=== PATIENT | male | born 1995 | race Caucasian/White ===

== ENCOUNTER 2017-12-18 12:43 | Emergency (ER) | payer MEDICAID, OTHER ==
[2017-12-18 13:20] LABS: HEMATOCRIT 46.2 % (42.0-52.0); HEMOGLOBIN 15.6 g/dl (14.0-18.0); MEAN CORPUSCULAR HEMOGLOBIN 28.9 pg (27.0-33.0); MEAN CORPUSCULAR HGB CONC 33.8 g/dl (32.0-36.5); MEAN CORPUSCULAR VOLUME 85.6 fl (80.0-96.0); PLATELET COUNT, AUTOMATED 277 10^3/uL (150-450); RED CELL DISTRIBUTION WIDTH 12.5 % (11.5-14.5); WHITE BLOOD COUNT 7.4 10^3/uL (4.0-10.0)
[2017-12-18 14:00] LABS: ALBUMIN 4.4 GM/DL (3.2-5.2); ALBUMIN/GLOBULIN RATIO 1.16 (1.00-1.93); ALKALINE PHOSPHATASE 53 U/L (45-117); ALT/SGPT 108 U/L (12-78); ANION GAP 6 MEQ/L (8-16); AST/SGOT 72 U/L (7-37); BILIRUBIN,DIRECT 0.1 MG/DL (0.0-0.2); BILIRUBIN,TOTAL 0.7 MG/DL (0.2-1.0); BLOOD UREA NITROGEN 12 MG/DL (7-18); CALCIUM LEVEL 9.8 MG/DL (8.5-10.1); CARBON DIOXIDE LEVEL 31 MEQ/L (21-32); CHLORIDE LEVEL 100 MEQ/L (98-107); CREATININE FOR GFR 0.77 MG/DL (0.70-1.30); ETHYL ALCOHOL (ETHANOL) < 0.003 % (0.000-0.010); GLOMERULAR FILTRATION RATE > 60.0 (>60); GLUCOSE, FASTING 89 MG/DL (70-100); POTASSIUM SERUM 4.3 MEQ/L (3.5-5.1); SALICYLATE LEVEL < 1.7 MG/DL (5.0-30.0); SODIUM LEVEL 137 MEQ/L (136-145); TOTAL PROTEIN 8.2 GM/DL (6.4-8.2)
[2017-12-18 14:04] LABS: ACETAMINOPHEN LEVEL < 2.0 UG/ML (10.0-30.0)
== END 2017-12-18 14:33 | disposition home or self-care (01) ==
LOC: M ED 12:43
DX: Z04.6 Encounter for general psychiatric examination, requested by authority (principal); F43.0 Acute stress reaction; F41.9 Anxiety disorder, unspecified
CPT/HCPCS: 80320; G0480

== ENCOUNTER → 2018-03-19 | Outpatient (REF) | payer OTHER ==
[2018-03-20 00:08] LABS: BLOOD UREA NITROGEN 10 MG/DL (7-18); GLUCOSE, FASTING 99 MG/DL (70-100)
[2018-03-20 00:09] LABS: ALBUMIN/GLOBULIN RATIO 1.11 (1.00-1.93); ALKALINE PHOSPHATASE 49 U/L (45-117); ALT/SGPT 107 U/L (12-78); ANION GAP 8 MEQ/L (8-16); AST/SGOT 59 U/L (7-37); BILIRUBIN,TOTAL 0.7 MG/DL (0.2-1.0); CALCIUM LEVEL 9.2 MG/DL (8.5-10.1); CARBON DIOXIDE LEVEL 28 MEQ/L (21-32); CHLORIDE LEVEL 102 MEQ/L (98-107); CREATININE FOR GFR 0.85 MG/DL (0.70-1.30); GLOMERULAR FILTRATION RATE > 60.0 (>60); POTASSIUM SERUM 4.4 MEQ/L (3.5-5.1); SODIUM LEVEL 138 MEQ/L (136-145); TOTAL PROTEIN 7.6 GM/DL (6.4-8.2)
[2018-03-20 03:42] LABS: BASO % 0.5 % (0.0-1.0); EOS # 0.3 10^3/uL (0.0-0.50); EOS % 2.9 % (0.0-3.0); HEMATOCRIT 47.1 % (42.0-52.0); HEMOGLOBIN 14.7 g/dl (13.5-17.5); IMMATURE GRANULOCYTE % 0.4 % (0-3.0); LYMPH # 3.3 10^3/uL (1.5-6.5); LYMPH % 38.5 % (24.0-44.0); MEAN CORPUSCULAR HEMOGLOBIN 28.4 pg (27.0-33.0); MEAN CORPUSCULAR HGB CONC 31.2 g/dl (32.0-36.5); MEAN CORPUSCULAR VOLUME 91.1 fl (80.0-96.0); MONO # 0.6 10^3/uL (0.0-0.8); MONO % 7.3 % (0.0-5.0); NEUTROPHILS # 4.3 10^3/uL (1.8-7.7); NEUTROPHILS % 50.4 % (36.0-66.0); PLATELET COUNT, AUTOMATED 290 10^3/uL (150-450); RED BLOOD COUNT 5.17 10^6/uL (4.30-6.10); RED CELL DISTRIBUTION WIDTH 13.4 % (11.5-14.5); WHITE BLOOD COUNT 8.5 10^3/uL (4.0-10.0)
== END ==
LOC: M SFHCPLAZ 09:51
DX: F41.9 Anxiety disorder, unspecified (principal); R74.8 Abnormal levels of other serum enzymes
CPT/HCPCS: 84443

== ENCOUNTER → 2018-04-17 | Outpatient (REF) | payer OTHER ==
[2018-04-17 16:43] LABS: FERRITIN 297 NG/ML (26-388)
[2018-04-18 09:54] LABS: HEPATITIS B SURFACE ANTIGEN NEGATIVE (NEGATIVE)
[2018-04-18 09:59] LABS: HEPATITIS B SURFACE ANTIBODY POSITIVE (POSITIVE)
[2018-04-18 10:19] LABS: HEPATITIS C VIRUS ABY INDEX 0.2 INDEX (<0.8)
[2018-04-18 10:20] LABS: HEPATITIS B CORE ANTIBODY IGM NEGATIVE (NEGATIVE)
[2018-04-20 00:10] LABS: ALPHA 1 ANTITRYPSIN 104 mg/dL (90-200)
[2018-04-20 00:10] LABS: ANTI-MITOCHONDRIAL ANTIBODY 3.3 Units (0.0-20.0); ANTINUCLEAR ANTIBODIES DIRECT Negative (Negative)
== END ==
LOC: M SFHCPLAZ 13:06
DX: R74.8 Abnormal levels of other serum enzymes (principal)

== ENCOUNTER → 2018-05-02 | Outpatient (CLI) | payer OTHER | LOC: M RAD 06:43 | DX: K76.0 Fatty (change of) liver, not elsewhere classified (principal); R74.8 Abnormal levels of other serum enzymes | CPT/HCPCS: 76705 ==

== ENCOUNTER → 2018-06-10 | Outpatient (CLI) | payer OTHER ==
[2018-06-10 14:55] LABS: CHOLESTEROL LEVEL 185 MG/DL (<200); CHOLESTEROL RISK RATIO 6.851 (<5); HDL CHOLESTEROL 27 MG/DL (>40); LDL CHOLESTEROL 94.8 MG/DL (<100); NON-HDL-C 158 MG/DL; TRIGLYCERIDES LEVEL 316 MG/DL (<150)
[2018-06-16 10:08] LABS: ALDOS/RENIN RATIO 12.4 (0.0-30.0); ALDOSTERONE 12.4 ng/dL (0.0-30.0); RENIN ACTIVITY 0.998 ng/mL/hr (0.167-5.380)
== END ==
LOC: M LAB 13:14
DX: K76.0 Fatty (change of) liver, not elsewhere classified (principal); I10 Essential (primary) hypertension
CPT/HCPCS: 84244

== ENCOUNTER → 2018-06-12 | Outpatient (CLI) | payer OTHER | LOC: M RAD 07:40 | DX: I10 Essential (primary) hypertension (principal) | CPT/HCPCS: 76775 ==

== ENCOUNTER → 2018-07-01 | Outpatient (REF) | payer OTHER ==
[2018-07-01 15:58] LABS: MALB URINE SIEMENS 5.8 MG/L
[2018-07-01 18:42] LABS: CREATININE, URINE 98.2 MG/DL; MAU/CREAT RATIO 5.9 MCG/MG (0.0-30.0)
== END ==
LOC: M SFHCADAM 14:25
DX: I10 Essential (primary) hypertension (principal)

== ENCOUNTER → 2019-03-03 | Outpatient (REF) | payer MEDICAID | LOC: M SFHCPLAZ 10:52 | DX: I10 Essential (primary) hypertension (principal); E78.2 Mixed hyperlipidemia; Z53.9 Procedure and treatment not carried out, unspecified reason ==

== ENCOUNTER → 2019-05-06 | Outpatient (CLI) | payer MEDICAID, OTHER, SELFPAY ==
[2019-05-06 17:32] LABS: ALBUMIN 3.9 GM/DL (3.2-5.2); ALT/SGPT 88 U/L (12-78); BILIRUBIN,TOTAL 0.6 MG/DL (0.2-1.0); BLOOD UREA NITROGEN 13 MG/DL (7-18); CALCIUM LEVEL 9.3 MG/DL (8.5-10.1); CARBON DIOXIDE LEVEL 30 MEQ/L (21-32); CHLORIDE LEVEL 103 MEQ/L (98-107); CHOLESTEROL LEVEL 179 MG/DL (<200); GLOMERULAR FILTRATION RATE > 60.0 (>60); GLUCOSE, FASTING 126 MG/DL (70-100); HDL CHOLESTEROL 25 MG/DL (>40); MAGNESIUM LEVEL 2.2 MG/DL (1.8-2.4); NON-HDL-C 154 MG/DL; POTASSIUM SERUM 4.6 MEQ/L (3.5-5.1); SODIUM LEVEL 139 MEQ/L (136-145); TOTAL PROTEIN 7.5 GM/DL (6.4-8.2); TRIGLYCERIDES LEVEL 518 MG/DL (<150)
[2019-05-06 17:33] LABS: BASO % 0.4 % (0.0-1.0); EOS # 0.2 10^3/uL (0.0-0.50); EOS % 1.8 % (0.0-3.0); HEMATOCRIT 44.9 % (42.0-52.0); LYMPH # 3.2 10^3/uL (1.5-6.5); MEAN CORPUSCULAR HGB CONC 33.4 g/dl (32.0-36.5); MEAN CORPUSCULAR VOLUME 86.7 fl (80.0-96.0); MONO # 0.7 10^3/uL (0.0-0.8); MONO % 8.3 % (0.0-5.0); NEUTROPHILS # 4.3 10^3/uL (1.8-7.7); PLATELET COUNT, AUTOMATED 288 10^3/uL (150-450); RED BLOOD COUNT 5.18 10^6/uL (4.30-6.10); WHITE BLOOD COUNT 8.4 10^3/uL (4.0-10.0)
[2019-05-06 19:22] LABS: HEMOGLOBIN A1c 6.4 %
== END ==
LOC: M WUC 14:38
PROVIDERS: ATTEND Nurse Practitioner Family
DX: I10 Essential (primary) hypertension (principal); E78.2 Mixed hyperlipidemia

== ENCOUNTER → 2019-09-01 | Outpatient (CLI) | payer OTHER, MEDICAID ==
[2019-09-01 14:46] LABS: HEMOGLOBIN A1c 5.9 %
[2019-09-01 14:58] LABS: ALBUMIN 3.8 GM/DL (3.2-5.2); ALT/SGPT 67 U/L (12-78); BILIRUBIN,TOTAL 0.7 MG/DL (0.2-1.0); BLOOD UREA NITROGEN 12 MG/DL (7-18); CALCIUM LEVEL 9.4 MG/DL (8.5-10.1); CARBON DIOXIDE LEVEL 32 MEQ/L (21-32); CHLORIDE LEVEL 101 MEQ/L (98-107); CHOLESTEROL LEVEL 166 MG/DL (<200); CHOLESTEROL RISK RATIO 6.148 (<5); CREATININE FOR GFR 0.76 MG/DL (0.70-1.30); GLOMERULAR FILTRATION RATE > 60.0 (>60); GLUCOSE, FASTING 88 MG/DL (70-100); HDL CHOLESTEROL 27 MG/DL (>40); LDL CHOLESTEROL 78 MG/DL (<100); NON-HDL-C 139 MG/DL; POTASSIUM SERUM 4.6 MEQ/L (3.5-5.1); SODIUM LEVEL 137 MEQ/L (136-145); TOTAL PROTEIN 7.3 GM/DL (6.4-8.2); TRIGLYCERIDES LEVEL 305 MG/DL (<150)
[2019-09-01 16:46] LABS: CREATININE, URINE 62.7 MG/DL; MAU/CREAT RATIO 9.5 MCG/MG (0.0-30.0)
== END ==
LOC: M WUC 12:25
PROVIDERS: ATTEND Nurse Practitioner Family
DX: I10 Essential (primary) hypertension (principal); E78.5 Hyperlipidemia, unspecified; E11.9 Type 2 diabetes mellitus without complications

== ENCOUNTER → 2020-09-09 | Outpatient (REF) | payer OTHER ==
[2020-09-09 16:15] LABS: ALBUMIN 4.2 GM/DL (3.2-5.2); ALT/SGPT 116 U/L (12-78); BILIRUBIN,TOTAL 0.6 MG/DL (0.2-1.0); BLOOD UREA NITROGEN 11 MG/DL (7-18); CALCIUM LEVEL 9.6 MG/DL (8.5-10.1); CARBON DIOXIDE LEVEL 28 MEQ/L (21-32); CHLORIDE LEVEL 101 MEQ/L (98-107); CHOLESTEROL LEVEL 204 MG/DL (<200); CHOLESTEROL RISK RATIO 7.034 (<5); CREATININE FOR GFR 0.88 MG/DL (0.70-1.30); FREE T4 1.05 NG/DL (0.76-1.46); GLOMERULAR FILTRATION RATE > 60.0 (>60); GLUCOSE, FASTING 122 MG/DL (70-100); HDL CHOLESTEROL 29 MG/DL (>40); LDL CHOLESTEROL 98 MG/DL (<100); NON-HDL-C 175 MG/DL; POTASSIUM SERUM 4.5 MEQ/L (3.5-5.1); SODIUM LEVEL 135 MEQ/L (136-145); TOTAL PROTEIN 7.7 GM/DL (6.4-8.2); TRIGLYCERIDES LEVEL 384 MG/DL (<150)
[2020-09-09 16:19] LABS: HEMOGLOBIN A1c 8.4 %
== END ==
LOC: M PLALAB 14:01
PROVIDERS: ATTEND Nurse Practitioner Family
DX: E11.9 Type 2 diabetes mellitus without complications (principal); E78.5 Hyperlipidemia, unspecified

== ENCOUNTER → 2020-09-13 | Outpatient (CLI) | payer OTHER ==
--- NOTE | 2020-09-13 12:34 | REPPI ---
INDICATION: M25.562 LEFT KNEE PAIN COMPARISON: None. TECHNIQUE: AP, lateral, bilateral oblique and sunrise views left knee. FINDINGS: The osseous structures and joint spaces are intact and normal. There is no evidence for acute fracture or dislocation. No joint effusion is appreciated. Surrounding soft tissues are unremarkable. No subcutaneous emphysema or radiodense foreign body. IMPRESSION: Essentially normal age-appropriate left knee radiograph series. <Electronically signed by Demetrio Jimenez > 09/13/20 1412
== END ==
LOC: M PLAIMG 11:03
PROVIDERS: ATTEND Nurse Practitioner Family
DX: M25.562 Pain in left knee (principal)

== ENCOUNTER → 2020-12-28 | Outpatient (CLI) | payer OTHER ==
[2020-12-28 16:53] LABS: ALBUMIN 4.2 GM/DL (3.2-5.2); ALT/SGPT 79 U/L (12-78); BILIRUBIN,TOTAL 0.8 MG/DL (0.2-1.0); BLOOD UREA NITROGEN 10 MG/DL (7-18); CALCIUM LEVEL 9.8 MG/DL (8.5-10.1); CARBON DIOXIDE LEVEL 27 MEQ/L (21-32); CHLORIDE LEVEL 100 MEQ/L (98-107); CHOLESTEROL LEVEL 125 MG/DL (<200); CHOLESTEROL RISK RATIO 3.571 (<5); CREATININE FOR GFR 0.88 MG/DL (0.70-1.30); GLOMERULAR FILTRATION RATE > 60.0 (>60); GLUCOSE, FASTING 122 MG/DL (70-100); HDL CHOLESTEROL 35 MG/DL (>40); LDL CHOLESTEROL 62 MG/DL (<100); NON-HDL-C 90 MG/DL; POTASSIUM SERUM 4.4 MEQ/L (3.5-5.1); SODIUM LEVEL 135 MEQ/L (136-145); TOTAL PROTEIN 7.8 GM/DL (6.4-8.2); TRIGLYCERIDES LEVEL 141 MG/DL (<150)
[2020-12-28 18:53] LABS: HEMOGLOBIN A1c 6.2 %
== END ==
LOC: M WUC 11:16
PROVIDERS: ATTEND Nurse Practitioner Family
DX: E78.5 Hyperlipidemia, unspecified (principal); E11.9 Type 2 diabetes mellitus without complications

== ENCOUNTER → 2020-12-28 | Outpatient (CLI) | payer OTHER ==
[2020-12-28 21:11] LABS: C REACTIVE PROTEIN QUANTITATIV 0.52 MG/DL (0.00-0.30); RHEUMATOID FACTOR QUANT 12.1 IU/ML (<15.0)
== END ==
LOC: M WUC 11:13
PROVIDERS: ATTEND Physician Assistant
DX: M51.36 Other intervertebral disc degeneration, lumbar region (principal)

== ENCOUNTER → 2021-03-08 | Outpatient (CLI) | payer OTHER ==
--- NOTE | 2021-03-08 13:28 | REP ---
INDICATION: LUMBAR DDD ? HNP VS STENOSIS. COMPARISON: None. TECHNIQUE: Sagittal and axial T1 and T2-weighted scans are acquired in the usual fashion with and without fat saturation. Sequences include spin echo, turbo spin-echo, and STIR imaging sequences. FINDINGS: Lumbar vertebral body heights are preserved. Alignment is normal. No bony destructive lesion is seen. There are Schmorl's nodes along the superior aspect of the L3, L2, and L1 vertebral bodies. Normal caliber aorta. No extra vertebral abnormality is appreciated. The tip of the conus medullaris is normal in position and appearance at L1. Axial and sagittal images taken at L1-2 L2-3 show no abnormality. At L3-4, there is mild degenerative disc space height loss. There is mild diffuse disc bulging indenting the ventral margin of the thecal sac. No focal disc protrusion is seen. No spinal stenosis or foraminal narrowing is seen. At L4-5 there is minimal narrowing and diffuse bulging. No foraminal narrowing or central spinal stenosis is seen. At L5-S1, there is a large left posterior/left foraminal disc protrusion compressing the thecal sac and the S1 root. There is left foraminal encroachment mild in degree. There is no evidence of spondylolysis or spondylolisthesis. IMPRESSION: The dominant abnormality is a large left foraminal and left posterior disc protrusion at L5-S1 with thecal sac and left S1 root compression. <Electronically signed by Quincy Monroy > 03/08/21 [id number]
== END ==
LOC: M PLARAD 11:17
PROVIDERS: ATTEND Physician Assistant
DX: R93.7 Abnormal findings on diagnostic imaging of other parts of musculoskeletal system (principal); M51.36 Other intervertebral disc degeneration, lumbar region

== ENCOUNTER 2021-04-18 12:30 | Outpatient (RCR) | payer OTHER | END 2021-04-19 | LOC: M PT 12:30 | PROVIDERS: ATTEND Physician Assistant | DX: M51.26 Other intervertebral disc displacement, lumbar region (principal); M51.36 Other intervertebral disc degeneration, lumbar region ==

== ENCOUNTER → 2021-05-04 | Outpatient (CLI) | payer OTHER ==
[2021-05-04 16:11] LABS: HEMOGLOBIN A1c 6.3 %
[2021-05-04 16:28] LABS: ALBUMIN 4.3 GM/DL (3.2-5.2); ALT/SGPT 64 U/L (12-78); BILIRUBIN,TOTAL 0.8 MG/DL (0.2-1.0); BLOOD UREA NITROGEN 13 MG/DL (7-18); CALCIUM LEVEL 9.7 MG/DL (8.5-10.1); CARBON DIOXIDE LEVEL 27 MEQ/L (21-32); CHLORIDE LEVEL 103 MEQ/L (98-107); CHOLESTEROL LEVEL 142 MG/DL (<200); CHOLESTEROL RISK RATIO 3.837 (<5); CREATININE FOR GFR 0.83 MG/DL (0.70-1.30); FREE T4 0.97 NG/DL (0.76-1.46); GLOMERULAR FILTRATION RATE > 60.0 (>60); GLUCOSE, FASTING 109 MG/DL (70-100); HDL CHOLESTEROL 37 MG/DL (>40); LDL CHOLESTEROL 74 MG/DL (<100); NON-HDL-C 105 MG/DL; POTASSIUM SERUM 4.4 MEQ/L (3.5-5.1); SODIUM LEVEL 137 MEQ/L (136-145); TOTAL PROTEIN 7.7 GM/DL (6.4-8.2); TRIGLYCERIDES LEVEL 156 MG/DL (<150)
== END ==
LOC: M WUC 14:23
PROVIDERS: ATTEND Nurse Practitioner Family
DX: E11.9 Type 2 diabetes mellitus without complications (principal); E78.5 Hyperlipidemia, unspecified

== ENCOUNTER 2021-05-18 13:30 | Outpatient (RCR) | payer OTHER | END 2021-05-20 | LOC: M PT 13:30 | PROVIDERS: ATTEND Physician Assistant | DX: M43.16 Spondylolisthesis, lumbar region (principal); M51.26 Other intervertebral disc displacement, lumbar region; M51.36 Other intervertebral disc degeneration, lumbar region ==

== ENCOUNTER → 2021-05-24 | Outpatient (CLI) | payer OTHER ==
--- NOTE | 2021-05-26 00:24 | ECWPNPC ---
PATIENT NAME: PRAVIN ROMO : 1995 GENDER: MALE VISIT DATE: 05/24/2021 DISCHARGE DATE: 05/24/21 1406 VISIT LOCKED DATE TIME: PHYSICIAN: RICHAR DAVIES PHYSICIAN PAGER NO: ACTIVE RESOURCE: RICHAR DAVIES REASON FOR APPOINTMENT 1. BACK PAIN HISTORY OF PRESENT ILLNESS DEPRESSION SCREENING: PHQ-2 (2015 EDITION) LITTLE INTEREST OR PLEASURE IN DOING THINGS?NOT AT ALL FEELING DOWN, DEPRESSED, OR HOPELESS?NOT AT ALL TOTAL SCORE0 GENERAL: HPI 26-YEAR-OLD MALE IN FOR INITIAL PAIN CONSULT REGARDING LOW BACK PAIN. HE RATES HIS PAIN CURRENTLY AT A 3 OUT OF 10 AND DESCRIBES IT STABBING. PATIENT IS CURRENTLY WORKING WITH PHYSICAL THERAPY AND HE ADMITS THAT THIS IS SOMEWHAT BENEFICIAL. HE DENIES INJECTIONS AND/OR MEDICATIONS IN THE PAST THAT HAVE BEEN OF BENEFIT.. - -. FALL RISK SCREENING: SCREENING : NO FALLS REPORTED IN THE LAST YEAR. PAIN SCREENING: PATIENT HAS A COMPLAINT OF ACUTE OR CHRONIC PAIN :YES LOCATION OF PAIN:LOW BACK, LEFT HIP INTENSITY OF PAIN (SCALE OF 1 TO 10):3 AVERAGE IS 7. VARIES IN INTENSITY. WHAT DOES YOUR PAIN FEEL LIKE:STABBING DURATION:CONTINOUS, CONSTANT PAIN IS INCREASED BY:ACTIVITIES, PROLONGED STANDING PAIN IS DECREASED BY:OTHERS LAYING DOWN, HEAT, PT NURSING NOTE: - -. PAIN CENTER INTAKE QUESTIONS: DO YOU HAVE A HISTORY OF MRSA? :NO DO YOU TAKE A BLOOD THINNERS? :NO DO YOU HAVE ANY BLEEDING DISORDERS? :NO ANY NEW NUMBNESS OR WEAKNESS IN YOUR LEGS OR ARMS? :NO ANY PACEMAKER,DEFIBRILLATOR, OR DORSAL COLUMN STIMULATOR? :NO DO YOU HAVE ANY RASHES OR OPEN SORES? :NO ARE YOU ALLERGIC TO IV DYE? :NO ARE YOU DIABETIC? :YES PATIENT IS TAKING MEDICATION ANY NEW PROBLEMS WITH YOUR MEDICATIONS? :NO HAVE YOU RECEIVED A VACCINE IN THE PAST 30 DAYS? :NO DO YOU PLAN TO RECEIVE A VACCINE IN THE NEXT 21 DAYS? :NO DO YOU NEED ANY PRESCRIPTION? :NO DO YOU TAKE ANY IMMUNOSUPPRESSIVE MEDICATIONS? :NO IS THERE A CHANCE YOU COULD BE ? :NO ARE YOU BREAST FEEDING? :NO CURRENT MEDICATIONS TAKING ALOGLIPTIN BENZOATE 25 MG TABLET 1 TABLET ORALLY ONCE A DAY TAKING KLONOPIN 0.5 MG TABLET 1/2 TABLET AT BEDTIME ORALLY ONCE A DAY TAKING LISINOPRIL 20 MG TABLET 1 TABLET ORALLY ONCE A DAY TAKING ATORVASTATIN CALCIUM 20 MG TABLET 1 TABLET ORALLY ONCE A DAY TAKING ALOGLIPTIN BENZOATE 25 MG TABLET 1 TABLET ORALLY ONCE A DAY NOT-TAKING BUSPIRONE HCL 15 MG TABLET 1 TABLET ORALLY BEFORE BEDTIME NOT-TAKING FISH OIL 1000 MG CAPSULE 1 CAPSULE ORALLY ONCE A DAY UNKNOWN TRULICITY 0.75 MG/0.5ML SOLUTION PEN-INJECTOR DIRECTED SUBCUTANEOUS WEEKLY MEDICATION LIST REVIEWED AND RECONCILED WITH THE PATIENT PAST MEDICAL HISTORY ANXIETY "MARKED HEPATIC STEATOSIS" ON US 04/2018 - WORK UP FOR LIVER DZ WNL HTN - CONFIRMED WITH 24 HR AMBULATORY MONITOR 05/07 DYSLIPIDEMIA - LOW HDL ECHOCARDIOGRAM 06/2018 - LVEF 60%, VERY MILD TRI-CUSPID REGURG, MILD PULMONIC REGURG. NORMAL SYSTOLIC AND DIASOLIC FX. ADHD AUTISM DJD L3-L5 C FORAMINAL DISC AT L5- S1. MRI LUMBAR SPINE IN [facility] DIABETES MELLITUS TYPE II ALLERGIES N.K.D.A. SURGICAL HISTORY RIGHT EYE AND LEFT TONSILLECTOMY AND ADENOIDECTOMY AT AGE 11 FAMILY HISTORY FATHER: ALIVE, ANXIETY, BRADYCARDIA MOTHER: ALIVE, ANXIETY SIBLINGS: ALIVE, SISTER DIABETES (TYPE I) PATERNAL GRAND FATHER: PATERNAL GRAND MOTHER: MATERNAL GRAND FATHER: ALIVE, CARDIOMYOPATHY, DIAGNOSED WITH UNSPECIFIED HEART DISEASE MATERNAL GRAND MOTHER: ALIVE, HYPERLIPIDEMIA, DIAGNOSED WITH HYPERTENSION 1 BROTHER(S) , 2 SISTER(S) - HEALTHY. DENIES FH OF PROSTATE OR COLON CANCER. SISTER IS DIABETIC. SOCIAL HISTORY GENERAL: TOBACCO USE ARE YOU A:NONSMOKER LATEX QUESTIONNAIRE LATEX ALLERGY : HAVE YOU EVER DEVELOPED ANY TYPE OF REACTION AFTER HANDLING LATEX PRODUCTS SUCH RUBBER GLOVES, CONDOMS, DIAPHRAGMS, BALLOONS, SOCKS, OR UNDERWEAR?NO LATEX ALLERGY : HAVE YOU EVER DEVELOPED ANY TYPE OF REACTION DURING OR AFTER DENTAL APPOINTMENT, VAGINAL/RECTAL EXAMINATION, SURGICAL PROCEDURE, OR ANY OTHER EXPOSURE?NO LATEX RISK : HAVE YOU EVER HAD ANY DIFFICULTY BREATHING OR HIVES AFTER EATING OR HANDLING ANY FRUITS, OR VEGETABLES; SUCH KIWI, BANANAS, STONE FRUITS, OR CHESTNUTSNO LATEX RISK : DO YOU HAVE A PREVIOUS PERSONAL HISTORY OF MORE THAN NINE SURGERIES, SPINA BIFIDA, OR REPEATED CATHERIZATIONS? NO LATEX RISK : ARE YOU FREQUENTLY EXPOSED TO LATEX PRODUCTS IN YOUR OCCUPATION?NO DATE ASKED : 05/24/2021 ALCOHOL USE: NO. ALCOHOL SCREENING DID YOU HAVE A DRINK CONTAINING ALCOHOL IN THE PAST YEAR?NO POINTS0 INTERPRETATIONNEGATIVE RECREATIONAL DRUG USE DRUG USE?NO CAFFEINE CAFFEINE USE?YES 4-5 CUPS PER DAY SEXUAL HX HAD SEX IN THE LAST 12 MONTHS (VAGINAL, ORAL, OR ANAL)?NO HAVE YOU EVER HAD AN STD?NO HIV / HEP-C SCREENING HIV TEST OFFERED TO PATIENT:YES DATE OFFERED:03/18/2018 TEST ACCEPTED:NO REASON:PATIENT DECLINED BROCHURE PROVIDED TO PATIENTNO HEP-C TEST OFFERED TO PATIENT:YES DATE OFFERED:03/18/2018 TEST ACCEPTED:NO REASON:PATIENT DECLINED RASTAFARI [id number] [employer] L[employer]UAGES SPOKEN:MALAYSIAN EDUCATION LEVEL OF EDUCATION:HIGH SCHOOL LEARNING BARRIERS / SPECIAL NEEDS CHANGE FROM LAST VISIT?NO BARRIERS TO LEARNING?YES ADD HEARING IMPAIRED?NO VISION IMPAIRED?NO COGNITIVELY IMPAIRED?NO READINESS TO LEARN?YES LEARNING PREFERENCES?NO LEARNING CAPABILITIES PRESENT?YES EMOTIONAL BARRIERS?YES ANXIETY, PTSD SPECIAL DEVICES?NO DATA QUALITY CONSULTANT NEEDED?NO DOMESTIC VIOLENCE STATUS:SINGLE DO YOU FEEL SAFE IN YOUR ENVIRONMENT?YES OCCUPATION: UNEMPLOYEED. HOUSING: PARENTS HOME. HOSPITALIZATION/MAJOR DIAGNOSTIC PROCEDURE SURGERY RELATED REVIEW OF SYSTEMS CONSTITUTIONAL: ANY RECENT FEVER NO . CHILLS NO . WEIGHT CHANGE OF UNKNOWN REASONS NO . MUSCULOSKELETAL: ANY UNUSUAL JOINT PAIN OR SWELLING NOT MENTIONED NO . SYSTEMIC LUPUS NO . ANY NEUROMUSCULAR DISORDER NOT MENTIONED NO . LYME DISEASE NO . GASTROENTEROLOGY: ANY NEW CHANGE IN BOWEL CONTROL? NO . HISTORY OF LIVER DISORDER NOT MENTIONED NO . HISTORY OF UNUSUAL ABDOMINAL PAIN OR CRAMPING NOT MENTIONED NO . NO CONSTIPATION. GENITOURINARY: ANY NEW CHANGE IN BLADDER CONTROL? NO . ANY RENAL/KIDNEY CONDITON NOT MENTIONED NO . NEUROLOGY: HISTORY OF TBI NOT MENTIONED NO . OTHER NEW NUMBNESS OR PAIN PATTERNS NOT MENTIONED NO . NEW ONSET DIZZINESS OR NEUROLOGICAL CHANGES NOT MENTIONED NO . HISTORY OF SEVERE HEADACHES NOT MENTIONED NO . HISTORY OF STROKE OR NEUROLOGICAL DISORDER NOT MENTIONED NO . CARDIOLOGY: HEART SURGERY NO . CONGESTIVE HEART FAILURE/FLUID OVERLOAD NOT MENTIONED NO . HISTORY OF CHEST PAIN,IRREGULAR HEART BEAT NOT MENTIONED NO . RESPIRATORY: SHORTNESS OF BREATH ON EXERTION, WHEEZES, UNUSUAL COUGH NOT MENTIONED NO . ENDOCRINOLOGY: ADRENAL GLAND OR THYROID DISORDERS NOT MENTIONED NO . UNUSUAL URINATION, DIZZINESS OR LETHARGY NOT MENTIONED NO . VITAL SIGNS WT 315.6 LBS, WT-KG 143.16 KG, HT 73 IN, BMI 41.63 INDEX, BP 147/75 MM HG, HR 89 /MIN, RR 18 /MIN, TEMP 98.2 F, OXYGEN SAT % 96%, SAFE IN ENV? (Y/N) YES, NA INITIALS AW 1319, REVIEWED BY: SARAH RICHARD MA. EXAMINATION GENERAL EXAMINATION: GENERALNO ACUTE DISTRESS, WELL NOURISHED AND HYDRATED. PSYCHAPPROPRIATE MOOD AND AFFECT . LUNGS:CLEAR TO AUSCULTATION BILATERALLY, NO WHEEZES, RHONCHI, RALES. HEART:NO MURMURS, REGULAR RATE AND RHYTHM. BACK:POINT TENDER ALONG LUMBAR SPINE, POSITIVE MODIFIED SLR LEFT SIDE.. MUSCULOSKELETAL:EQUAL STRENGTH OF THE LOWER EXTREMITIES BILATERALLY. ASSESSMENTS INTERVERTEBRAL DISC DISORDERS WITH RADICULOPATHY, LUMBOSACRAL REGION - M51.17 (PRIMARY) TREATMENT INTERVERTEBRAL DISC DISORDERS WITH RADICULOPATHY, LUMBOSACRAL REGION START GABAPENTIN CAPSULE, 100 MG, 1 CAPSULE, ORALLY, THREE TIMES DAILY, 5 DAYS, 15 START GABAPENTIN CAPSULE, 300 MG, 1 CAPSULE, ORALLY, THREE TIMES DAILY START DAY 6, 30 DAY(S), 90, REFILLS 1 NOTES: 26-YEAR-OLD MALE IN FOR INITIAL PAIN CONSULT REGARDING LOW BACK PAIN WITH RADICULOPATHY. GIVEN PRESENTING SYMPTOMS AND RESULTS OF PHYSICAL EXAMINATION RECOMMEND GABAPENTIN 100 MG 3 TIMES DAILY X5 DAYS THEN INCREASING TO 300 MG 3 TIMES DAILY THEREAFTER WITH FOLLOW-UP IN 1 MONTH TO DETERMINE EFFICACY OF TREATMENT. PATIENT HAS EXPRESSED UNDERSTANDING OF AND WAS IN AGREEMENT WITH TREATMENT PLAN. GIVEN TIME TO ASK QUESTIONS AND EXPRESS CONCERNS. OTHERS NOTES: GABAPENTIN MATERIAL WAS PRINTED AND PROVIDED TO PATIENT. PATIENT VERBALIZED AN UNDERSTANDING. NICHOLAS RICHARD MA. PROCEDURE CODES [id number] ESTABILISHED PATIENT [facility] CHARGE DISPOSITION & COMMUNICATION FOLLOW UP 4 WEEKS (REASON: NEW MED) ELECTRONICALLY SIGNED BY JEANCARLOS MYERS ON 05/25/2021 AT 08:10 AM EDT DISCLAIMER : THIS IS A VISIT SUMMARY EXTRACTED FROM THE [employer] CHART. IT IS NOT A COPY OF THE [employer] PROGRESS NOTE. IAIN
== END ==
LOC: M PAIN 13:00
PROVIDERS: ATTEND Family Medicine
DX: M51.17 Intervertebral disc disorders with radiculopathy, lumbosacral region (principal); F41.9 Anxiety disorder, unspecified; K76.0 Fatty (change of) liver, not elsewhere classified; I10 Essential (primary) hypertension; E78.5 Hyperlipidemia, unspecified; F90.9 Attention-deficit hyperactivity disorder, unspecified type; F84.0 Autistic disorder; E11.9 Type 2 diabetes mellitus without complications; Z79.84 Long term (current) use of oral hypoglycemic drugs; Z79.899 Other long term (current) drug therapy

== ENCOUNTER 2021-06-13 13:30 | Outpatient (RCR) | payer OTHER | END 2021-06-20 | LOC: M PT 13:30 | PROVIDERS: ATTEND Physician Assistant | DX: M51.26 Other intervertebral disc displacement, lumbar region (principal) ==

== ENCOUNTER → 2021-07-17 | Outpatient (CLI) | payer OTHER | LOC: M PAIN 14:45 | PROVIDERS: ATTEND Anesthesiology | DX: M51.17 Intervertebral disc disorders with radiculopathy, lumbosacral region (principal); F41.9 Anxiety disorder, unspecified; K76.0 Fatty (change of) liver, not elsewhere classified; I10 Essential (primary) hypertension; E78.5 Hyperlipidemia, unspecified; F90.9 Attention-deficit hyperactivity disorder, unspecified type; F84.0 Autistic disorder; E11.9 Type 2 diabetes mellitus without complications; Z79.84 Long term (current) use of oral hypoglycemic drugs; Z79.899 Other long term (current) drug therapy ==

== ENCOUNTER → 2021-08-23 | Outpatient (CLI) | payer OTHER | LOC: M LABSMTC 11:05 | PROVIDERS: ATTEND Anesthesiology | DX: Z01.818 Encounter for other preprocedural examination (principal); Z11.52 Encounter for screening for COVID-19 ==

== ENCOUNTER → 2021-08-28 | Outpatient (CLI) | payer OTHER ==
[~2021-08-28] MED LIST: ISOVUE-M 300 61% 15ML VIAL As Ordered ONE; LIDOCAINE 1% SDV 30ML VIAL As Ordered ONE; diazePAM 5MG TABLET As Ordered ONE; methylPREDNISolone SUSP 40MG/ML 1ML VIAL (DEPO MEDROL) As Ordered ONE; oxyCODONE 5MG TAB As Ordered ONE
--- NOTE | 2021-08-28 16:42 | REP ---
INDICATION: LUMBAR EPIDURAL STEROID INJECTION. COMPARISON: None. TECHNIQUE: C-arm views lower lumbar spine. FINDINGS: A needle is seen at the L5 level. IMPRESSION: 14 seconds fluoroscopy time utilized. <Electronically signed by Wilmar Yuan > 08/28/21 0008
== END ==
LOC: M PAIN 11:00
PROVIDERS: ATTEND Anesthesiology
DX: M51.17 Intervertebral disc disorders with radiculopathy, lumbosacral region (principal); F41.9 Anxiety disorder, unspecified; I10 Essential (primary) hypertension; E78.5 Hyperlipidemia, unspecified; F90.9 Attention-deficit hyperactivity disorder, unspecified type; F84.0 Autistic disorder; E11.9 Type 2 diabetes mellitus without complications; Z79.84 Long term (current) use of oral hypoglycemic drugs; Z79.899 Other long term (current) drug therapy
CPT/HCPCS: 62323; J1030; Q9967

== ENCOUNTER → 2021-09-27 | Outpatient (CLI) | payer OTHER | LOC: M PAIN 11:30 | PROVIDERS: ATTEND Anesthesiology | DX: G89.29 Other chronic pain (principal); M51.16 Intervertebral disc disorders with radiculopathy, lumbar region; E11.9 Type 2 diabetes mellitus without complications; F41.9 Anxiety disorder, unspecified; K76.0 Fatty (change of) liver, not elsewhere classified; I10 Essential (primary) hypertension; E78.5 Hyperlipidemia, unspecified; F90.9 Attention-deficit hyperactivity disorder, unspecified type; F84.0 Autistic disorder; Z79.84 Long term (current) use of oral hypoglycemic drugs; Z79.899 Other long term (current) drug therapy ==

== ENCOUNTER → 2022-01-05 | Outpatient (CLI) | payer OTHER, MEDICAID ==
[2022-01-05 19:51] LABS: HEMOGLOBIN A1c 6.6 %
[2022-01-05 19:57] LABS: ALBUMIN 4.5 GM/DL (3.2-5.2); ALT/SGPT 107 U/L (12-78); BLOOD UREA NITROGEN 12 MG/DL (7-18); CARBON DIOXIDE LEVEL 32 MEQ/L (21-32); CHLORIDE LEVEL 102 MEQ/L (98-107); CHOLESTEROL LEVEL 146 MG/DL (<200); CHOLESTEROL RISK RATIO 3.945 (<5); CREATININE FOR GFR 0.77 MG/DL (0.70-1.30); GLOMERULAR FILTRATION RATE > 60.0 (>60); GLUCOSE, FASTING 110 MG/DL (70-100); HDL CHOLESTEROL 37 MG/DL (>40); LDL CHOLESTEROL 73 MG/DL (<100); NON-HDL-C 109 MG/DL; POTASSIUM SERUM 4.3 MEQ/L (3.5-5.1); SODIUM LEVEL 138 MEQ/L (136-145); TOTAL PROTEIN 7.9 GM/DL (6.4-8.2); TRIGLYCERIDES LEVEL 180 MG/DL (<150)
[2022-01-05 20:00] LABS: MALB URINE SIEMENS 7.1 MG/L; MAU/CREAT RATIO 6.2 MCG/MG (0.0-30.0)
== END ==
LOC: M WUC 15:39
PROVIDERS: ATTEND Nurse Practitioner Family
DX: E78.5 Hyperlipidemia, unspecified (principal); E11.9 Type 2 diabetes mellitus without complications

== ENCOUNTER → 2022-02-05 | Outpatient (CLI) | payer OTHER | LOC: M SLEEP HO 10:51 | PROVIDERS: ATTEND Nurse Practitioner Family | DX: G47.30 Sleep apnea, unspecified (principal) ==

== ENCOUNTER → 2022-03-02 | Outpatient (CLI) | payer OTHER | LOC: M PLARAD 12:50 | PROVIDERS: ATTEND Physician Assistant | DX: M54.50 Low back pain, unspecified (principal) ==

== ENCOUNTER → 2022-04-10 | Outpatient (REF) | payer OTHER, MEDICAID ==
[2022-04-10 19:43] LABS: BASO % 0.4 % (0.0-1.0); EOS # 0.1 10^3/uL (0.0-0.5); EOS % 1.3 % (0.0-3.0); HEMATOCRIT 46.3 % (42.0-52.0); HEMOGLOBIN 15.4 g/dl (13.5-17.5); LYMPH # 3.1 10^3/uL (1.5-5.0); LYMPH % 40.5 % (24.0-44.0); MEAN CORPUSCULAR HEMOGLOBIN 29.4 pg (27.0-33.0); MEAN CORPUSCULAR HGB CONC 33.3 g/dl (32.0-36.5); MEAN CORPUSCULAR VOLUME 88.5 fl (80.0-96.0); MONO # 0.5 10^3/uL (0.0-0.8); MONO % 6.7 % (2.0-8.0); NEUTROPHILS # 3.9 10^3/uL (1.5-8.5); NEUTROPHILS % 50.8 % (36.0-66.0); PLATELET COUNT, AUTOMATED 291 10^3/uL (150-450); RED BLOOD COUNT 5.23 10^6/uL (4.30-6.10); WHITE BLOOD COUNT 7.8 10^3/uL (4.0-10.0)
[2022-04-10 20:04] LABS: ALBUMIN 4.4 GM/DL (3.2-5.2); ALT/SGPT 111 U/L (12-78); BILIRUBIN,TOTAL 1.3 MG/DL (0.2-1.0); BLOOD UREA NITROGEN 13 MG/DL (7-18); CALCIUM LEVEL 9.2 MG/DL (8.5-10.1); CARBON DIOXIDE LEVEL 29 MEQ/L (21-32); CHLORIDE LEVEL 100 MEQ/L (98-107); CHOLESTEROL LEVEL 130 MG/DL (<200); CHOLESTEROL RISK RATIO 3.939 (<5); CREATININE FOR GFR 0.84 MG/DL (0.70-1.30); GLOMERULAR FILTRATION RATE > 60.0 (>60); GLUCOSE, FASTING 111 MG/DL (70-100); HDL CHOLESTEROL 33 MG/DL (>40); LDL CHOLESTEROL 53 MG/DL (<100); NON-HDL-C 97 MG/DL; POTASSIUM SERUM 4.4 MEQ/L (3.5-5.1); SODIUM LEVEL 136 MEQ/L (136-145); TOTAL PROTEIN 7.6 GM/DL (6.4-8.2); TRIGLYCERIDES LEVEL 220 MG/DL (<150)
[2022-04-10 20:09] LABS: CREATININE, URINE 76.2 MG/DL; MAU/CREAT RATIO 9.1 MCG/MG (0.0-30.0)
[2022-04-10 20:22] LABS: HEMOGLOBIN A1c 6.8 %
== END ==
LOC: M SFHCPLAZ 19:23 → M WUC 19:23
PROVIDERS: ATTEND Nurse Practitioner Family
DX: E11.9 Type 2 diabetes mellitus without complications (principal)

== ENCOUNTER → 2022-08-13 | Outpatient (REF) | payer OTHER, MEDICAID ==
[2022-08-13 17:40] LABS: BASO % 0.4 % (0.0-1.0); EOS # 0.1 10^3/uL (0.0-0.5); EOS % 1.4 % (0.0-3.0); HEMATOCRIT 46.7 % (42.0-52.0); LYMPH % 41.1 % (24.0-44.0); MEAN CORPUSCULAR HEMOGLOBIN 28.4 pg (27.0-33.0); MEAN CORPUSCULAR HGB CONC 32.1 g/dl (32.0-36.5); MEAN CORPUSCULAR VOLUME 88.3 fl (80.0-96.0); MONO # 0.5 10^3/uL (0.0-0.8); NEUTROPHILS # 3.6 10^3/uL (1.5-8.5); NEUTROPHILS % 49.7 % (36.0-66.0); PLATELET COUNT, AUTOMATED 264 10^3/uL (150-450); RED BLOOD COUNT 5.29 10^6/uL (4.30-6.10); WHITE BLOOD COUNT 7.3 10^3/uL (4.0-10.0)
[2022-08-13 17:49] LABS: HEMOGLOBIN A1c 7.2 %
[2022-08-13 18:17] LABS: ALBUMIN 4.5 GM/DL (3.2-5.2); ALT/SGPT 116 U/L (12-78); BLOOD UREA NITROGEN 14 MG/DL (7-18); CALCIUM LEVEL 9.8 MG/DL (8.5-10.1); CARBON DIOXIDE LEVEL 28 MEQ/L (21-32); CHLORIDE LEVEL 99 MEQ/L (98-107); CHOLESTEROL LEVEL 151 MG/DL (<200); CHOLESTEROL RISK RATIO 5.033 (<5); FREE T4 0.98 NG/DL (0.76-1.46); GLOMERULAR FILTRATION RATE > 60.0 (>60); GLUCOSE, FASTING 137 MG/DL (70-100); HDL CHOLESTEROL 30 MG/DL (>40); LDL CHOLESTEROL 66 MG/DL (<100); NON-HDL-C 121 MG/DL; POTASSIUM SERUM 4.5 MEQ/L (3.5-5.1); SODIUM LEVEL 133 MEQ/L (136-145); TOTAL PROTEIN 7.8 GM/DL (6.4-8.2); TRIGLYCERIDES LEVEL 273 MG/DL (<150)
[2022-08-13 18:21] LABS: MALB URINE SIEMENS 9.3 MG/L; MAU/CREAT RATIO 6.2 MCG/MG (0.0-30.0)
== END ==
LOC: M LABWUC 16:22
PROVIDERS: ATTEND Nurse Practitioner Family
DX: I10 Essential (primary) hypertension (principal); E11.9 Type 2 diabetes mellitus without complications; E78.5 Hyperlipidemia, unspecified

== ENCOUNTER → 2022-08-24 | Outpatient (CLI) | payer OTHER, MEDICAID ==
[2022-08-24 17:19] LABS: BASO % 0.5 % (0.0-1.0); EOS # 0.1 10^3/uL (0.0-0.5); EOS % 1.7 % (0.0-3.0); HEMATOCRIT 44.1 % (42.0-52.0); HEMOGLOBIN 14.8 g/dl (13.5-17.5); LYMPH # 2.8 10^3/uL (1.5-5.0); LYMPH % 42.6 % (24.0-44.0); MEAN CORPUSCULAR HEMOGLOBIN 29.5 pg (27.0-33.0); MEAN CORPUSCULAR HGB CONC 33.6 g/dl (32.0-36.5); MEAN CORPUSCULAR VOLUME 87.8 fl (80.0-96.0); MONO # 0.5 10^3/uL (0.0-0.8); MONO % 6.9 % (2.0-8.0); NEUTROPHILS # 3.2 10^3/uL (1.5-8.5); PLATELET COUNT, AUTOMATED 241 10^3/uL (150-450); RED BLOOD COUNT 5.02 10^6/uL (4.30-6.10); WHITE BLOOD COUNT 6.6 10^3/uL (4.0-10.0)
[2022-08-24 17:28] LABS: HEMOGLOBIN A1c 7.5 %
[2022-08-24 17:40] LABS: ALBUMIN 4.2 GM/DL (3.2-5.2); ALT/SGPT 117 U/L (12-78); BLOOD UREA NITROGEN 14 MG/DL (7-18); CALCIUM LEVEL 9.8 MG/DL (8.5-10.1); CARBON DIOXIDE LEVEL 28 MEQ/L (21-32); CHLORIDE LEVEL 99 MEQ/L (98-107); CHOLESTEROL LEVEL 143 MG/DL (<200); CHOLESTEROL RISK RATIO 4.931 (<5); CREATININE FOR GFR 0.81 MG/DL (0.70-1.30); FERRITIN 334 NG/ML (26-388); GLOMERULAR FILTRATION RATE > 60.0 (>60); GLUCOSE, FASTING 141 MG/DL (70-100); HDL CHOLESTEROL 29 MG/DL (>40); IRON (FE) 87 UG/DL (65-175); LDL CHOLESTEROL 67 MG/DL (<100); NON-HDL-C 114 MG/DL; PERCENT SATURATION 21.4 % (19.7-50.0); POTASSIUM SERUM 4.1 MEQ/L (3.5-5.1); SODIUM LEVEL 133 MEQ/L (136-145); TOTAL IRON BINDING CAPACITY 406 UG/DL (250-450); TOTAL PROTEIN 7.6 GM/DL (6.4-8.2); TRIGLYCERIDES LEVEL 235 MG/DL (<150)
[2022-08-24 18:39] LABS: FOLATE 19.2 NG/ML (>5.4); VITAMIN B12 LEVEL 463 PG/ML (247-911)
== END ==
LOC: M WUC 13:04
PROVIDERS: ATTEND Surgery
DX: E66.01 Morbid (severe) obesity due to excess calories (principal)

== ENCOUNTER → 2022-09-12 | Outpatient (REF) | payer OTHER, MEDICAID | LOC: M WUC 15:30 | PROVIDERS: ATTEND Nurse Practitioner Family | DX: K76.0 Fatty (change of) liver, not elsewhere classified (principal) ==

== ENCOUNTER → 2023-04-01 | Outpatient (REF) | payer OTHER, MEDICAID ==
[2023-04-01 20:36] LABS: CREATININE, URINE 167.4 MG/DL
[2023-04-01 20:37] LABS: MAU/CREAT RATIO 4.1 MCG/MG (0.0-30.0)
== END ==
LOC: M LABWUC 16:14
PROVIDERS: ATTEND Nurse Practitioner Family
DX: E11.9 Type 2 diabetes mellitus without complications (principal); E78.5 Hyperlipidemia, unspecified

== ENCOUNTER → 2023-09-11 | Outpatient (CLI) | payer OTHER | LOC: M SOG 07:55 | PROVIDERS: ATTEND Orthopaedic Surgery | DX: M54.50 Low back pain, unspecified (principal) ==

== ENCOUNTER 2023-10-10 12:45 | Outpatient (RCR) | payer OTHER | END 2023-10-20 | LOC: M PT 12:45 | PROVIDERS: ATTEND Orthopaedic Surgery | DX: M51.27 Other intervertebral disc displacement, lumbosacral region (principal) ==

== ENCOUNTER 2023-11-07 12:45 | Outpatient (RCR) | payer OTHER | END 2023-11-20 | LOC: M PT 12:45 | PROVIDERS: ATTEND Orthopaedic Surgery | DX: M51.16 Intervertebral disc disorders with radiculopathy, lumbar region (principal) ==

== ENCOUNTER → 2023-11-20 | Outpatient (CLI) | payer OTHER ==
[2023-11-20 17:26] LABS: ALBUMIN 4.5 G/DL (3.2-5.2); ALKALINE PHOSPHATASE 47 U/L (46-116); ALT/SGPT 119 U/L (7.0-40); AST/SGOT 67 U/L (<34); BILIRUBIN,TOTAL 1.3 MG/DL (0.3-1.2); BLOOD UREA NITROGEN 13 MG/DL (9-23); CALCIUM LEVEL 9.7 MG/DL (8.5-10.1); CARBON DIOXIDE LEVEL 30 MMOL/L (20-31); CHLORIDE LEVEL 98 MMOL/L (98-107); CHOLESTEROL LEVEL 150 MG/DL (<200); CHOLESTEROL RISK RATIO 4.09 (<5); CREATININE FOR GFR 0.66 MG/DL (0.70-1.30); GLOMERULAR FILTRATION RATE > 60.0 (>60); GLUCOSE, FASTING 147 MG/DL (60-100); HDL CHOLESTEROL 36.6 MG/DL (>40); LDL CHOLESTEROL 67.4 MG/DL (<100); NON-HDL-C 113.4 MG/DL; POTASSIUM SERUM 4.3 MMOL/L (3.5-5.1); SODIUM LEVEL 135 MMOL/L (136-145); TOTAL PROTEIN 7.8 G/DL (5.7-8.2); TRIGLYCERIDES LEVEL 230 MG/DL (<150)
[2023-11-20 17:39] LABS: HEMOGLOBIN A1c 7.8 % (4.0-6.0)
== END ==
LOC: M WUC 13:50
PROVIDERS: ATTEND Nurse Practitioner Family
DX: K76.0 Fatty (change of) liver, not elsewhere classified (principal); E78.5 Hyperlipidemia, unspecified; E11.9 Type 2 diabetes mellitus without complications

== ENCOUNTER → 2023-12-20 | Outpatient (CLI) | payer OTHER | LOC: M PLARAD 14:06 | PROVIDERS: ATTEND Orthopaedic Surgery | DX: M51.27 Other intervertebral disc displacement, lumbosacral region (principal); M51.16 Intervertebral disc disorders with radiculopathy, lumbar region ==

== ENCOUNTER → 2024-07-15 | Outpatient (CLI) | payer OTHER ==
[2024-07-15 18:28] LABS: BASO % 0.6 % (0.0-1.0); EOS # 0.1 10^3/uL (0.0-0.5); EOS % 1.1 % (0.0-3.0); HEMATOCRIT 47.4 % (42.0-52.0); HEMOGLOBIN 15.6 g/dl (13.5-17.5); LYMPH # 3.2 10^3/uL (1.5-5.0); LYMPH % 44.9 % (24.0-44.0); MEAN CORPUSCULAR HEMOGLOBIN 28.6 pg (27.0-33.0); MEAN CORPUSCULAR HGB CONC 32.9 g/dl (32.0-36.5); MONO # 0.5 10^3/uL (0.0-0.8); MONO % 7.5 % (2.0-8.0); NEUTROPHILS # 3.3 10^3/uL (1.5-8.5); NEUTROPHILS % 45.6 % (36.0-66.0); PLATELET COUNT, AUTOMATED 276 10^3/uL (150-450); RED BLOOD COUNT 5.45 10^6/uL (4.30-6.10); WHITE BLOOD COUNT 7.2 10^3/uL (4.0-10.0)
[2024-07-15 18:53] LABS: HEMOGLOBIN A1c 9.1 % (4.0-6.0)
[2024-07-15 18:54] LABS: ALBUMIN 4.3 G/DL (3.2-5.2); ALKALINE PHOSPHATASE 53 U/L (46-116); ALT/SGPT 126 U/L (7.0-40); AST/SGOT 65 U/L (<34); BILIRUBIN,TOTAL 1.1 MG/DL (0.3-1.2); BLOOD UREA NITROGEN 15 MG/DL (9-23); CALCIUM LEVEL 9.5 MG/DL (8.5-10.1); CARBON DIOXIDE LEVEL 28 MMOL/L (20-31); CHLORIDE LEVEL 102 MMOL/L (98-107); CHOLESTEROL LEVEL 152 MG/DL (<200); CHOLESTEROL RISK RATIO 5.11 (<5); CREATININE FOR GFR 0.69 MG/DL (0.70-1.30); GLOMERULAR FILTRATION RATE > 60.0 (>60); GLUCOSE, FASTING 203 MG/DL (60-100); HDL CHOLESTEROL 29.7 MG/DL (>40); NON-HDL-C 122.3 MG/DL; SODIUM LEVEL 133 MMOL/L (136-145); TOTAL PROTEIN 7.7 G/DL (5.7-8.2); TRIGLYCERIDES LEVEL 453 MG/DL (<150)
== END ==
LOC: M WUC 13:49
PROVIDERS: ATTEND Nurse Practitioner Family
DX: K76.0 Fatty (change of) liver, not elsewhere classified (principal); E78.5 Hyperlipidemia, unspecified; E11.9 Type 2 diabetes mellitus without complications

== ENCOUNTER → 2024-11-16 | Outpatient (CLI) | payer OTHER ==
[2024-11-16 17:56] LABS: BASO % 0.7 % (0.0-1.0); EOS # 0.1 10^3/uL (0.0-0.5); EOS % 1.3 % (0.0-3.0); HEMATOCRIT 47.9 % (42.0-52.0); HEMOGLOBIN 15.9 g/dl (13.5-17.5); LYMPH # 2.6 10^3/uL (1.5-5.0); LYMPH % 42.7 % (24.0-44.0); MEAN CORPUSCULAR HEMOGLOBIN 28.4 pg (27.0-33.0); MEAN CORPUSCULAR HGB CONC 33.2 g/dl (32.0-36.5); MEAN CORPUSCULAR VOLUME 85.7 fl (80.0-96.0); MONO # 0.5 10^3/uL (0.0-0.8); MONO % 7.9 % (2.0-8.0); NEUTROPHILS # 2.8 10^3/uL (1.5-8.5); NEUTROPHILS % 47.2 % (36.0-66.0); PLATELET COUNT, AUTOMATED 230 10^3/uL (150-450); RED BLOOD COUNT 5.59 10^6/uL (4.30-6.10)
[2024-11-16 18:13] LABS: CREATININE, URINE 124.7 MG/DL; MAU/CREAT RATIO 9.6 MCG/MG (0.0-30.0)
[2024-11-16 18:17] LABS: ALBUMIN 4.2 G/DL (3.2-5.2); ALKALINE PHOSPHATASE 48 U/L (40-129); ALT/SGPT 106 U/L (7.0-40); AST/SGOT 57 U/L (<34); BILIRUBIN,TOTAL 1.3 MG/DL (0.3-1.2); BLOOD UREA NITROGEN 11 MG/DL (9-23); CALCIUM LEVEL 9.6 MG/DL (8.5-10.1); CARBON DIOXIDE LEVEL 28 MMOL/L (20-31); CHLORIDE LEVEL 99 MMOL/L (98-107); CHOLESTEROL LEVEL 144 MG/DL (<200); CHOLESTEROL RISK RATIO 4.84 (<5); CREATININE FOR GFR 0.67 MG/DL (0.70-1.30); GLOMERULAR FILTRATION RATE > 60.0 (>60); GLUCOSE, FASTING 196 MG/DL (60-100); HDL CHOLESTEROL 29.7 MG/DL (>40); LDL CHOLESTEROL 59.9 MG/DL (<100); NON-HDL-C 114.3 MG/DL; POTASSIUM SERUM 4.6 MMOL/L (3.5-5.1); SODIUM LEVEL 136 MMOL/L (136-145); TOTAL PROTEIN 7.5 G/DL (5.7-8.2); TRIGLYCERIDES LEVEL 272 MG/DL (<150)
[2024-11-16 18:29] LABS: HEMOGLOBIN A1c 9.5 % (4.0-6.0)
== END ==
LOC: M PLALAB 15:16
PROVIDERS: ATTEND Nurse Practitioner Family
DX: E11.9 Type 2 diabetes mellitus without complications (principal); I10 Essential (primary) hypertension; E78.5 Hyperlipidemia, unspecified

== ENCOUNTER → 2025-03-18 | Outpatient (CLI) | payer OTHER ==
[2025-03-18 15:35] LABS: BASO % 0.4 % (0.0-1.0); EOS # 0.1 10^3/uL (0.0-0.5); EOS % 1.3 % (0.0-3.0); HEMATOCRIT 49.3 % (42.0-52.0); HEMOGLOBIN 16.2 g/dl (13.5-17.5); LYMPH # 2.8 10^3/uL (1.5-5.0); LYMPH % 40.6 % (24.0-44.0); MEAN CORPUSCULAR HEMOGLOBIN 28.4 pg (27.0-33.0); MEAN CORPUSCULAR HGB CONC 32.9 g/dl (32.0-36.5); MEAN CORPUSCULAR VOLUME 86.5 fl (80.0-96.0); MONO # 0.5 10^3/uL (0.0-0.8); MONO % 6.9 % (2.0-8.0); NEUTROPHILS # 3.5 10^3/uL (1.5-8.5); NEUTROPHILS % 50.5 % (36.0-66.0); PLATELET COUNT, AUTOMATED 250 10^3/uL (150-450)
[2025-03-18 15:59] LABS: MALB URINE SIEMENS < 3.0 MG/L
[2025-03-18 16:00] LABS: ALBUMIN 4.3 G/DL (3.2-5.2); ALKALINE PHOSPHATASE 45 U/L (40-129); ALT/SGPT 52 U/L (7.0-40); AST/SGOT 26 U/L (<34); BILIRUBIN,TOTAL 1.3 MG/DL (0.3-1.2); BLOOD UREA NITROGEN 11 MG/DL (9-23); CALCIUM LEVEL 10.4 MG/DL (8.5-10.1); CARBON DIOXIDE LEVEL 30 MMOL/L (20-31); CHLORIDE LEVEL 100 MMOL/L (98-107); CHOLESTEROL LEVEL 131 MG/DL (<200); CHOLESTEROL RISK RATIO 4.01 (<5); CREATININE FOR GFR 0.73 MG/DL (0.70-1.30); GLOMERULAR FILTRATION RATE > 90.0 (>60); GLUCOSE, FASTING 135 MG/DL (60-100); HDL CHOLESTEROL 32.6 MG/DL (>40); LDL CHOLESTEROL 63.8 MG/DL (<100); NON-HDL-C 98.4 MG/DL; POTASSIUM SERUM 4.8 MMOL/L (3.5-5.1); SODIUM LEVEL 138 MMOL/L (136-145); TOTAL PROTEIN 7.5 G/DL (5.7-8.2); TRIGLYCERIDES LEVEL 173 MG/DL (<150)
[2025-03-18 16:02] LABS: THYROID STIMULATING HORMONE 1.143 uIU/ML (0.55-4.78)
[2025-03-18 16:41] LABS: HEMOGLOBIN A1c 7.1 % (4.0-6.0)
== END ==
LOC: M PLALAB 13:50
PROVIDERS: ATTEND Nurse Practitioner Family
DX: E11.9 Type 2 diabetes mellitus without complications (principal)

== ENCOUNTER → 2025-06-03 | Outpatient (CLI) | payer OTHER | LOC: M PLARAD 08:10 | PROVIDERS: ATTEND Neurological Surgery | DX: M51.362 Other intervertebral disc degeneration, lumbar region with discogenic back pain and lower extremity pain (principal); M47.26 Other spondylosis with radiculopathy, lumbar region; M51.26 Other intervertebral disc displacement, lumbar region ==

== ENCOUNTER → 2025-07-20 | Outpatient (CLI) | payer OTHER ==
[2025-07-20 18:53] LABS: ESTIMATED AVERAGE GLUCOSE 166.0 MG/DL (60-110)
[2025-07-20 19:08] LABS: ALT/SGPT 51 U/L (7.0-40); AST/SGOT 29 U/L (<34); CALCIUM LEVEL 9.7 MG/DL (8.5-10.1); CARBON DIOXIDE LEVEL 28 MMOL/L (20-31); CHLORIDE LEVEL 100 MMOL/L (98-107); CHOLESTEROL LEVEL 143 MG/DL (<200); CHOLESTEROL RISK RATIO 4.09 (<5); CREATININE FOR GFR 0.76 MG/DL (0.70-1.30); GLOMERULAR FILTRATION RATE > 90.0 (>60); LDL CHOLESTEROL 73.9 MG/DL (<100); NON-HDL-C 108.1 MG/DL; POTASSIUM SERUM 4.0 MMOL/L (3.5-5.1); SODIUM LEVEL 133 MMOL/L (136-145); TRIGLYCERIDES LEVEL 171 MG/DL (<150)
[2025-07-20 19:09] LABS: PTH INTACT 24.5 PG/ML (18.5-88.0)
[2025-07-20 19:11] LABS: TOTAL 25(OH) VITAMIN D 26.6 NG/ML (20.0-100.0)
== END ==
LOC: M WUC 13:34
PROVIDERS: ATTEND Nurse Practitioner Family
DX: E55.9 Vitamin D deficiency, unspecified (principal); I10 Essential (primary) hypertension; E11.9 Type 2 diabetes mellitus without complications

== ENCOUNTER → 2025-09-20 | Outpatient (CLI) | payer OTHER ==
[2025-09-20 10:25] LABS: BASO # 0.0 10^3/uL (0.0-0.2); BASO % 0.4 % (0.0-1.0); EOS # 0.1 10^3/uL (0.0-0.5); EOS % 1.6 % (0.0-3.0); INR 0.96; LYMPH # 2.8 10^3/uL (1.5-5.0); LYMPH % 40.7 % (24.0-44.0); MONO # 0.5 10^3/uL (0.0-0.8); MONO % 7.7 % (2.0-8.0); NEUTROPHILS # 3.4 10^3/uL (1.5-8.5); NEUTROPHILS % 49.2 % (36.0-66.0); PLATELET COUNT, AUTOMATED 239 10^3/uL (150-450)
[2025-09-20 10:42] LABS: ALT/SGPT 56 U/L (7.0-40); AST/SGOT 31 U/L (<34); CALCIUM LEVEL 9.4 MG/DL (8.5-10.1); CARBON DIOXIDE LEVEL 29 MMOL/L (20-31); CHLORIDE LEVEL 102 MMOL/L (98-107); CREATININE FOR GFR 0.72 MG/DL (0.70-1.30); GLOMERULAR FILTRATION RATE > 90.0 (>60); POTASSIUM SERUM 4.4 MMOL/L (3.5-5.1); SODIUM LEVEL 139 MMOL/L (136-145)
== END ==
LOC: M PLALAB 09:09
PROVIDERS: ATTEND Student in an Organized Health Care Education/Training Program
DX: Z01.818 Encounter for other preprocedural examination (principal)

== ENCOUNTER → 2025-09-30 | Outpatient (CLI) | payer OTHER ==
[2025-09-30 10:32] LABS: INR 1.05
[2025-09-30 10:52] LABS: APPEARANCE, URINE CLEAR (CLEAR); BACTERIA, URINE AUTO NEGATIVE (NEGATIVE); BILIRUBIN, URINE AUTO NEGATIVE (NEGATIVE); BLOOD, URINE BLOOD NEGATIVE (NEGATIVE); GLUCOSE, URINE (UA) AUTO 3+ mg/dL (NEGATIVE); KETONE, URINE AUTO TRACE mg/dL (NEGATIVE); LEUKOCYTE ESTERASE, URINE AUTO NEGATIVE (NEGATIVE); MUCUS, URINE SMALL (NEGATIVE); NITRITE, URINE AUTO NEGATIVE (NEGATIVE); PROTEIN, URINE AUTO NEGATIVE (NEGATIVE); RBC, URINE AUTO 0 /HPF (0-3); SPECIFIC GRAVITY URINE AUTO 1.029 (1.002-1.035); SQUAMOUS EPITHELIAL CELL UR AU 0 /HPF (0-6); UROBILINOGEN, URINE AUTO 0.2 mg/dL (0.0-2.0); WBC, URINE AUTO 0 /HPF (0-3)
== END ==
LOC: M RAD 07:38
PROVIDERS: ATTEND Neurological Surgery
DX: Z01.811 Encounter for preprocedural respiratory examination (principal); R06.02 Shortness of breath; M47.26 Other spondylosis with radiculopathy, lumbar region; R79.1 Abnormal coagulation profile; N39.0 Urinary tract infection, site not specified